=== PATIENT | female | born 1960 | race Hispanic/Latino ===

== ENCOUNTER 2020-10-26 12:13 | Emergency (ER) | payer OTHER ==
[2020-10-26] MEDS ORDERED: ONDANSETRON 4 MG/2 ML INJ IV ONE (16:42)
[2020-10-26] MEDS ORDERED: SODIUM CHLORIDE 0.9% 1000 ML 1,000 ML IV ONE (16:42)
--- NOTE | 2020-10-26 17:08 | Emergency Department Report ---
- General Chief complaint: Weakness Stated complaint: GENERAL WEAKNESS Time Seen by Provider: 10/26/20 16:36 Source: patient, EMS Mode of arrival: Stretcher Limitations: No Limitations - History of Present Illness Initial comments: Patient is 60 years old female with history of glioblastoma currently on chemotherapy. Patient presented to the ER via EMS from home complaining of ge neralized weakness, nausea, vomiting and diarrhea. Patient stated that her symptoms started few days ago. Patient stated that she is unable to keep anything down since yesterday. Patient denied any fever or chills. No cough or shortness of breath. No chest pain. Patient denied abdominal pain also. Patient reported increased urinary frequency and urine color is more dark. Patient denied any focal weakness numbness or tingling sensation. MD Complaint: generalized weakness -: Gradual, days(s) Location: generalized Severity: moderate Associated Symptoms: nausea/vomiting ED Review of Systems ROS: Stated complaint: GENERAL WEAKNESS Other details as noted in HPI Comment: All other systems reviewed and negative Constitutional: denies: chills, fever Respiratory: denies: cough, shortness of breath, SOB with exertion, SOB at rest, wheezing Cardiovascular: denies: chest pain, palpitations Gastrointestinal: nausea, vomiting, diarrhea. denies: abdominal pain, constipation, hematemesis, melena, hematochezia Musculoskeletal: denies: back pain Neurological: weakness. denies: headache, numbness, paresthesias, confusion, abnormal gait Psychiatric: denies: depression ED Physical Exam - General Limitations: No Limitations General appearance: alert, in no apparent distress - Head Head exam: Present: atraumatic, normocephalic, normal inspection - ENT ENT exam: Present: mucous membranes dry - Neck Neck exam: Present: normal inspection, full ROM. Absent: tenderness, meningismus - Respiratory Respiratory exam: Present: normal lung sounds bilaterally - Cardiovascular Cardiovascular Exam: Present: regular rate, normal rhythm, normal heart sounds - GI/Abdominal GI/Abdominal exam: Present: soft, normal bowel sounds. Absent: distended, tenderness, guarding, rebound, rigid, organomegaly, mass, bruit, pulsatile mass, hernia - Extremities Exam Extremities exam: Present: normal inspection, full ROM, normal capillary refill. Absent: tenderness, pedal edema, joint swelling, calf tenderness - Back Exam Back exam: Present: normal inspection, full ROM. Absent: CVA tenderness (R), CVA tenderness (L) - Neurological Exam Neurological exam: Present: alert, oriented X3, CN II-XII intact. Absent: motor sensory deficit - Psychiatric Psychiatric exam: Present: normal mood - Skin Skin exam: Present: warm, dry, intact, normal color ED Course Vital Signs 10/26/20 10/26/20 10/26/20 16:00 17:00 17:01 Temperature 98.8 F Pulse Rate 108 H 68 92 H Respiratory 28 H 16 18 Rate Blood Pressure 146/86 124/68 123/78 O2 Sat by Pulse 99 98 94 Oximetry 10/26/20 10/26/20 10/26/20 17:24 17:31 18:01 Temperature Pulse Rate 76 75 Respiratory 18 16 16 Rate Blood Pressure 139/58 149/80 O2 Sat by Pulse 100 96 98 Oximetry 10/26/20 10/26/20 10/26/20 18:31 19:01 19:31 Temperature Pulse Rate 78 73 75 Respiratory 19 16 17 Rate Blood Pressure 149/80 149/80 149/80 O2 Sat by Pulse 95 96 97 Oximetry 10/26/20 10/26/20 20:01 20:31 Temperature Pulse Rate 76 75 Respiratory 16 17 Rate Blood Pressure 149/74 149/74 O2 Sat by Pulse 98 95 Oximetry ED Medical Decision Making - Lab Data Result diagrams: 10/26/20 17:07 10/26/20 17:07 - Radiology Data Radiology results: report reviewed - Medical Decision Making Patient is 60 years old female with history of glioblastoma currently on chemotherapy. Patient presented to the ER via EMS from home complaining of generalized weakness, nausea, vomiting and diarrhea. Patient stated that her s ymptoms started few days ago. Patient stated that she is unable to keep anything down since yesterday. Patient denied any fever or chills. No cough or shortness of breath. No chest pain. Patient denied abdominal pain also. Patient reported increased urinary frequency and urine color is more dark. Patient denied any focal weakness numbness or tingling sensation. Patient received 1 L of normal saline, Zofran. Labs reviewed and is unremarkable. Chest x-ray is negative for acute finding. Patient stated that she is feeling much better. Patient advised to follow-up with her oncologist an d primary care physician in the next 2 to 3 days and to return to the ER if she develop any new symptoms. Critical care attestation.: If time is entered above; I have spent that time in minutes in the direct care of this critically ill patient, excluding procedure time. ED Disposition Clinical Impression: Generalized weakness, Acute nausea with nonbilious vomiting Disposition: - TO HOME OR SELFCARE Is pt being admited?: No Condition: Stable Instructions: Nausea and Vomiting, Adult, Weakness, [id number] Referrals: ALINA PATEL MD [Primary Care Provider] - 3-5 Days
[2020-10-26 17:25] LABS: Basophils # (Auto) 0.1 K/mm3 (0.0-0.1); Basophils % (Auto) 0.9 % (0.0-1.8); Eosinophils # (Auto) 0.1 K/mm3 (0.0-0.4); Eosinophils % (Auto) 0.8 % (0.0-4.3); Hemoglobin 12.8 gm/dl (10.1-14.3); Lymphocytes # (Auto) 2.5 K/mm3 (1.2-5.4); Lymphocytes % (Auto) 23.9 % (13.4-35.0); Mean Corpuscular HGB Conc 33 % (30-34); Mean Corpuscular Volume 90 fl (79-97); Monocytes # (Auto) 0.8 K/mm3 (0.0-0.8); Monocytes % (Auto) 7.3 % (0.0-7.3); Platelet Count 281 K/mm3 (140-440); Red Blood Count 4.34 M/mm3 (3.65-5.03); Red Cell Distribution Width 14.4 % (13.2-15.2)
--- NOTE | 2020-10-26 17:29 | XRay Report ---
CHEST 1 VIEW 10/26/2020 5:10 PM INDICATION / CLINICAL INFORMATION: Weakness. COMPARISON: None available. FINDINGS: SUPPORT DEVICES: None. HEART / MEDIASTINUM: No significant abnormality. LUNGS / PLEURA: No significant pulmonary or pleural abnormality. No pneumothorax. ADDITIONAL FINDINGS: No significant additional findings. IMPRESSION: 1. No acute findings. Signer Name: Ron Herrera DO Signed: 10/26/2020 5:25 PM Workstation Name: [id number]
[2020-10-26 17:50] LABS: BUN/Creatinine Ratio 20; Blood Urea Nitrogen 20 mg/dL (7-17); Hemolysis Index 6
[2020-10-26 20:39] VITALS: BP 149/74
[2020-10-26 20:59] LABS: Bacteria,Urine 2+ /HPF (Negative); Bilirubin,Urine NEG (Negative); Blood,Urine NEG (Negative); Color,Urine Yellow (Yellow); Hyaline Casts,Urine 1 /LPF; Mucus,Urine FEW /HPF; Protein,Urine <15 mg/dL mg/dL (Negative); Urobilinogen,Urine < 2.0 mg/dL (<2.0)
== END 2020-10-26 23:57 | disposition home or self-care (01) ==
LOC: ED 12:13
DX: R11.2 Nausea with vomiting, unspecified (principal); R53.1 Weakness; Z79.899 Other long term (current) drug therapy
CPT/HCPCS: 36415; 71045; 80048; 81001; 82550; 83735; 84484; 85025; 87040; 96361; 96374